=== PATIENT | female | born 1985 | race Caucasian/White ===

== ENCOUNTER → 2023-09-30 15:14 | Outpatient (REF) | payer BC, SELFPAY | LOC: HWRAD 15:14 | PROVIDERS: ATTENDING PHYSICIAN Student in an Organized Health Care Education/Training Program | DX: M54.2 Cervicalgia (principal) | CPT/HCPCS: 72052 ==

== ENCOUNTER → 2023-12-23 08:42 | Outpatient (REF) | payer OTHER, SELFPAY | LOC: HWRAD 08:42 | PROVIDERS: ATTENDING PHYSICIAN Student in an Organized Health Care Education/Training Program | DX: S23.9XXD Sprain of unspecified parts of thorax, subsequent encounter (principal) | CPT/HCPCS: 72072 ==

== ENCOUNTER → 2023-12-25 08:20 | Outpatient (REF) | payer OTHER, SELFPAY | LOC: RAD 08:20 | PROVIDERS: ATTENDING PHYSICIAN Student in an Organized Health Care Education/Training Program | DX: R10.11 Right upper quadrant pain (principal) | CPT/HCPCS: 76700 ==

== ENCOUNTER → 2023-12-27 07:25 | Outpatient (REF) | payer OTHER, SELFPAY | LOC: HWRAD 07:25 | PROVIDERS: ATTENDING PHYSICIAN Student in an Organized Health Care Education/Training Program | DX: M54.6 Pain in thoracic spine (principal); S22.068D Other fracture of T7-T8 thoracic vertebra, subsequent encounter for fracture with routine healing | CPT/HCPCS: 72128 ==

== ENCOUNTER → 2024-01-02 08:29 | Outpatient (REF) | payer OTHER, SELFPAY | LOC: HWRAD 08:29 | PROVIDERS: FAMILY PHYSICIAN Student in an Organized Health Care Education/Training Program | DX: T14.8XXA Other injury of unspecified body region, initial encounter (principal); S30.1XXD Contusion of abdominal wall, subsequent encounter; R07.82 Intercostal pain | CPT/HCPCS: 71101; 74177; Q9967 ==

== ENCOUNTER → 2024-03-20 16:23 | Outpatient (REF) | payer OTHER, SELFPAY | LOC: RAD 16:23 | PROVIDERS: ATTENDING PHYSICIAN Student in an Organized Health Care Education/Training Program | DX: S30.1XXD Contusion of abdominal wall, subsequent encounter (principal); T14.8XXA Other injury of unspecified body region, initial encounter | CPT/HCPCS: 74177; Q9967 ==

== ENCOUNTER 2024-07-19 17:15 | Emergency (ER) | payer BC, SELFPAY ==
[2024-07-19 17:20] VITALS: BP 189/114
--- NOTE | 2024-07-19 18:08 | ED.GENMED ---
History of Present Illness
General
Chief Complaint: Facial Problem
Time Seen by Provider: 07/19/24 17:45
History of Present Illness
History of Present Illness:
39-year-old female presents the emergency department for evaluation of right-sided facial pain and hyperesthesia for the past 4 to 5 days. Pain increases when anything touches the face but has a baseline level of discomfort to the right
supraorbital face at all times. Denies any rashes, vision changes, nausea, vomiting, or recent head trauma. No hearing loss or dizziness. Pain is constant and there is no episodic quality to the pain.
Past History
Past History
ED Past Medical History: HTN and Psychiatric (Anxiety)
ED Past Surgical History: Cholecystectomy, (X 2) and Gynecological (tubal, )
Social History
Tobacco: Non-smoker
Alcohol: None
Personal:
Living: with family
Review of Systems
Review of Systems
Allergies reviewed?: Yes
All Other Systems: ROS reviewed and negative except as documented in HPI and ROS
Phy Exam
Physical Exam
Physical Exam:
GEN: Well appearing, NAD, WDWN
HEENT: Oral mucosa moist, no scleral icterus, no nasal congestion. No facial rashes
Cardiac: Regular rate
Lung: No respiratory distress, no tachypnea
MSK: No gross deformity or injuries
Skin: Good color, no pallor or jaundice, no rashes
Neuro: AO x3; CN II-XII grossly intact. BUE strength 5/5 in all cam, sensation intact and symmetric. BLE strength 5/5 in all cam, sensation intact and symmetric
Psych: Calm, cooperative
Course
Vital Signs
Initial and Last Documented VS:
Initial Vital Signs
Temp Pulse Resp BP Pulse Ox
98.5 F 80 18 189/114 99
07/19/24 17:20 07/19/24 17:20 07/19/24 17:20 07/19/24 17:20 07/19/24 17:20
Last Documented Vital Signs
Temp Pulse Resp BP Pulse Ox
98.5 F 78 18 176/120 99
07/19/24 17:20 07/19/24 18:11 07/19/24 17:20 07/19/24 18:11 07/19/24 17:20
MDM/Problems Addressed
MDM/Problems Addressed:
Patient's pain location is compatible with trigeminal neuralgia however pain quality would suggest atypical disorder. She has no skin rashes to suggest zoster and no focal neurologic deficits warranting neuroimaging at this time. Given atypical
nature I have recommended she follow-up with her primary care physician to discuss an outpatient brain and/or facial MRI to evaluate for structural or neoplastic lesion causing her symptoms. Will trial her on carbamazepine
*Critical Care Note
Total Time (30-74mins, 75-104mins- exclusive of procedures): Not Applicable
ED Attending Note
-
Portions of this chart may have been created with voice recognition software.� Occasional wrong word or��sound alike� substitutions may have occurred due to the inherent limitations of voice recognition software.
Discharge Plan
Departure
Patient Disposition: Home (Routine Discharge)
Date of Disposition: 07/19/24
Time of Disposition: 18:09
Patient with high blood pressure during this ER visit?: No
Discharge Problem:
Atypical facial pain
Instructions: Trigeminal neuralgia
Prescriptions:
New
carbamazepine [Tegretol] 200 mg tablet
100 mg PO BID Qty: 30 0RF
Rx Instructions:
If no improvement, increase to 200mg PO BID after 5 days
No Action
pantoprazole [Protonix] 40 mg tablet,delayed release (DR/EC)
40 mg PO DAILY Qty: 10 0RF
Referrals:
Hailey Aquino PA-C [Family Provider, Family Practice]
Activity Restrictions/Additional Instructions:
Please discuss an outpatient MRI with your primary care physician as the atypical nature of your facial pain is more concerning for a structural or neurologic condition causing the symptoms. CT scan is typically not adequate for these findings
Interventions
Interventions:
*Risk Screen - Suicide Last Done: 07/19/24 17:20
*General Assessment Last Done: 07/19/24 18:10
*Neglect/Abuse Screening Last Done: 07/19/24 17:20
*ED- Fall Risk Assessment Last Done: 07/19/24 18:10
*ED COVID-19 Vaccine History Last Done: 07/19/24 18:10
*Nursing Disposition Last Done: 07/19/24 18:17
ED- Neurological Assessment Last Done: 07/19/24 18:11
ED-Skin Assessment Last Done: 07/19/24 18:11
Discharge Date and Time
Discharge Date/Time: 07/19/24 18:18
Print Language: CHINESE
[2024-07-19 18:10] VITALS: BMI 34.8
[2024-07-19 18:11] VITALS: BP 176/120
== END 2024-07-19 18:18 | disposition home or self-care (01) ==
LOC: EMR 17:15
PROVIDERS: EMERGENCY PHYSICIAN Emergency Medicine; FAMILY PHYSICIAN Student in an Organized Health Care Education/Training Program
DX: G50.1 Atypical facial pain (principal)
CPT/HCPCS: 99282

== ENCOUNTER 2024-09-20 16:12 | Emergency (ER) | payer BC, SELFPAY ==
[2024-09-20 16:15] VITALS: BP 146/104
[2024-09-20 16:33] LABS: Hematocrit 39.2 % (37.0-47.0); Hemoglobin 13.8 g/dL (12.0-16.0); Mean Corp Hgb Conc. 35.2 g/dL (33.0-37.0); Mean Corpuscular Volume 88.7 fL (81.0-99.0); Nucleated Red Blood Cells % 0 %; Platelet Count 273 10^3/uL (130-400); Red Cell Dist. Width 11.5 % (11.5-14.5)
[2024-09-20 16:54] LABS: HCG, Serum Qualitative Screen Negative
[2024-09-20 16:58] LABS: ALT (SGPT) 18 U/L (0-35); AST (SGOT) 18 U/L (14-36); Albumin 4.6 g/dl (3.5-5.0); Alkaline Phosphatase 44 U/L (38-126); Blood Urea Nitrogen 12 mg/dl (7-17); Calcium 9.6 mg/dl (8.4-10.2); Carbon Dioxide 24 mmol/L (22-30); Chloride 106 mmol/L (98-107); Glucose 113 mg/dl (70-99); Potassium 4.0 mmol/L (3.5-5.1); Sodium 137 mmol/L (135-145); Total Protein 7.4 g/dl (6.3-8.2); eGFR > 60.00
[2024-09-20 17:06] LABS: Troponin I < 0.012 ng/ml
[2024-09-20 18:13] VITALS: BMI 26.6
[2024-09-20 19:19] LABS: D-Dimer 0.50 ug/mlFEU (0.00-0.50)
[2024-09-20 19:25] VITALS: BP 129/82
[2024-09-20 20:00] VITALS: BP 129/71
[2024-09-20 22:04] VITALS: BP 139/96
--- NOTE | 2024-09-20 22:34 | ED.GENMED ---
History of Present Illness
General
Chief Complaint: Breathing Problem
Source: patient
Exam Limitations: none
Time Seen by Provider: 09/20/24 18:00
Nursing documentation reviewed up to this point in time: agreed with
History of Present Illness
History of Present Illness:
Patient to ED with complaint of chest tightness, difficulty breathing. Symptoms started 2 days ago. Denies fever/chills, recent illness. No n/v/diaphoresis. No chest pain. Denies cough. TO ED accompanied by family for eval.
Past History
Past History
ED Past Medical History: HTN and Psychiatric (Anxiety)
ED Past Surgical History: Cholecystectomy, (X 2) and Gynecological (tubal, )
Social History
Tobacco: Non-smoker
Alcohol: None
Personal:
Living: with family
Review of Systems
Review of Systems
Allergies reviewed?: Yes
All Other Systems: ROS reviewed and negative except as documented in HPI and ROS
Constitutional: Reports no symptoms
EENT: Reports no symptoms
Respiratory: Reports trouble breathing
Cardiac: Reports no symptoms
ABD/GI: Reports no symptoms
: Reports no symptoms
Musculoskeletal: Reports no symptoms
Skin: Reports no symptoms
Neurological: Reports no symptoms
Psychiatric: Reports no symptoms
Phy Exam
General Physical Exam
General Presentation: mild distress
General age: appears stated age
General Skin: warm and dry
General Habitus: normal
General Mental: alert
General Hydration: appears well hydrated
Cardiovascular Exam
Cardiovascular Exam: regular rate/rhythm and no edema
Pulmonary Exam
Pulmonary Exam: lungs clear, no respiratory distress, no rales, chest non tender, no crackles, no rhonchi, no stridor, no wheezing, no cough and other (Pulse ox 98% RA)
Musculoskeletal Exam
Musculoskeletal Exam: full ROM and neuro vasc intact
Skin Exam
Skin Exam: normal color, warm/dry and no rash
Psychiatric Exam
Psychiatric Exam: normal mood/affect
Course
Orders/Labs/Results
Orders:
Orders
09/20/24 16:15
Electrocardiogram (*1) Urgent
Reason for Study: Shortness of Breath
EKG- Treatment ONCE
Test Result ONCE
09/20/24 16:27
Complete Blood Count/With Diff Urgent
Comprehensive Metabolic Panel Urgent
HCG, Serum Qualitative Screen Urgent
Troponin I Urgent
09/20/24 18:14
CR Chest - 2 Views Urgent
Comment:
Reason For Exam: SOB
09/20/24 18:21
D-Dimer Urgent
09/20/24 19:37
CT Chest PE Study Urgent
Comment:
Reason For Exam: Chest pain, dyspnea
Abnormal Lab Results
09/20/24
16:27
MCH 31.2 H pg
(27.0-31.0)
MPV 10.5 H fL
(7.4-10.4)
Absolute Lymphs (auto) 4.3 H 10^3/uL
(1.2-3.4)
Glucose 113 H mg/dl
(70-99)
09/20/24 16:27
09/20/24 16:27
Vital Signs
Initial and Last Documented VS:
Initial Vital Signs
Temp Pulse Resp BP Pulse Ox
99.3 F 103 16 146/104 100
09/20/24 16:15 09/20/24 16:15 09/20/24 16:15 09/20/24 16:15 09/20/24 16:15
Last Documented Vital Signs
Temp Pulse Resp BP Pulse Ox
99.3 F 75 18 139/96 100
09/20/24 16:15 09/20/24 22:00 09/20/24 20:00 09/20/24 22:04 09/20/24 22:05
*Radiology
Radiology exam reviewed: radiology read reviewed
*Pulse Oximetry
SaO2: 100
Oxygen Mode of Delivery: Room air
Patient hypoxic: no
*Critical Care Note
Total Time (30-74mins, 75-104mins- exclusive of procedures): Not Applicable
Update Note
Update Note:
Patient to ED with complaint of chest tightness, difficulty breathing x 2 days. VSS, she remains afebrile. LCTA, no concerning findings on CXR, CT. Labs are stable. PUlse ox remains 98% RA, respirations 22. EKG NSR, troponin neg, Will discharge
home, she will follow up with her PCP in AM. Given instructions on s/s to return to ED and she is agreeable to plan.
ED Attending Note
-
Portions of this chart may have been created with voice recognition software.� Occasional wrong word or��sound alike� substitutions may have occurred due to the inherent limitations of voice recognition software.
Discharge Plan
Departure
Patient Disposition: Home (Routine Discharge)
Date of Disposition: 09/20/24
Time of Disposition: 22:09
Patient with high blood pressure during this ER visit?: No
Condition: Good
Covid-19: Not Applicable
Discharge Problem:
Dyspnea
Instructions: Shortness of Breath (Dyspnea) (DC)
Prescriptions:
No Action
pantoprazole [Protonix] 40 mg tablet,delayed release (DR/EC)
40 mg PO DAILY Qty: 10 0RF
carbamazepine [Tegretol] 200 mg tablet
100 mg PO BID Qty: 30 0RF
Rx Instructions:
If no improvement, increase to 200mg PO BID after 5 days
Referrals:
Hailey Aquino PA-C [Family Provider, Family Practice] - Call in 1-3 days for appt
Interventions
Interventions:
*Risk Screen - Suicide Last Done: 09/20/24 16:17
*General Assessment Last Done: 09/20/24 18:14
*Neglect/Abuse Screening Last Done: 09/20/24 16:17
*ED- Fall Risk Assessment Last Done: 09/20/24 18:14
*ED COVID-19 Vaccine History Last Done: 09/20/24 18:14
*Nursing Disposition Last Done: 09/20/24 22:20
ED- Cardiac Assessment Last Done: 09/20/24 22:14
ED- Pulmonary Assessment Last Done: 09/20/24 22:14
Discharge Date and Time
Discharge Date/Time: 09/20/24 22:22
Print Language: NEPALI
== END 2024-09-20 22:22 | disposition home or self-care (01) ==
LOC: EMR 16:12
PROVIDERS: Nurse Practitioner; Student in an Organized Health Care Education/Training Program; EMERGENCY PHYSICIAN Emergency Medicine; FAMILY PHYSICIAN Student in an Organized Health Care Education/Training Program
DX: R06.00 Dyspnea, unspecified (principal); I10 Essential (primary) hypertension; F41.9 Anxiety disorder, unspecified
CPT/HCPCS: 99284; 71046; 71275; 80053; 84484; 84703; 85025; 85379; 93005; Q9967

== ENCOUNTER → 2024-09-25 06:49 | Outpatient (REF) | payer OTHER, SELFPAY | LOC: RAD 06:49 | PROVIDERS: ATTENDING PHYSICIAN Surgery; FAMILY PHYSICIAN Student in an Organized Health Care Education/Training Program | DX: S30.1XXA Contusion of abdominal wall, initial encounter (principal) | CPT/HCPCS: 74177; Q9967 ==

== ENCOUNTER 2024-12-17 05:51 | Day surgery (SDC) | payer BC, SELFPAY ==
[2024-12-17 06:27] VITALS: BMI 34.8
[2024-12-17 06:29] VITALS: BMI 34.8
[2024-12-17] MEDS: TYLENOL 1000 MG PO (06:31)
[2024-12-17 06:40] VITALS: BP 111/83
[2024-12-17] MEDS: NORMOSOL-R/PLASMALYTE-A 1000 IV (06:42)
--- NOTE | 2024-12-17 06:52 | W.SUR.PREOP ---
Pre-Operative Surgical Note
-
I have examined this patient prior to the performance of the scheduled procedure.
The patient's condition is unchanged from the time of the current History and
Physical and the patient is able to undergo the scheduled procedure.
--- NOTE | 2024-12-17 06:52 | HP.FOC2 ---
Focused History & Physical
Chief Complaint
HPI:
Chief Complaint: Left lower quadrant abdominal wall mass
HPI / Indication for Planned Procedure: This is a 39-year-old female who presents with a left lower quadrant abdominal wall mass. Will plan for an open excision in the OR.
Relevant Past Medical History: Negative
Relevant Social History: Negative
Relevant Family History: Negative
Relevant Past Surgical History: Negative
Review of Systems
Review of Pertinent Systems: All Systems Negative
Medication
See Medication form for detailed medications: Yes
Medication List (including Herbals & OTC):
lisinopril 10 mg tablet 10 mg PO DAILY 12/11/24
sertraline 50 mg tablet 50 mg PO DAILY 12/11/24
tirzepatide (weight loss) 5 mg/0.5 mL subcutaneous pen injector (Zepbound) 5 mg SC QWEEK 12/11/24
Medications Reviewed: Yes
Allergies and Reactions
Patient has Allergies: Yes
Noted Allergies and Reactions:
Allergy/AdvReac Type Severity Reaction Status Date / Time
amoxicillin Allergy Hives Verified 12/17/24 06:28
doxycycline Allergy GI S/S Verified 12/17/24 06:28
Pertinent Physical Exam
All Other Systems: Negative
Head/Neck: Normal
Diagnosis / Assessment
This is a 39-year-old female who presents with a left lower quadrant abdominal wall mass. Will plan for an open excision in the OR.
Plan / Procedure
This is a 39-year-old female who presents with a left lower quadrant abdominal wall mass. Will plan for an open excision in the OR.
Anesthesia/Sedation to be done by Anesthesia Provider: Yes
--- NOTE | 2024-12-17 08:03 | W.IMMPOSTOP ---
Surgical Immed Post Op Note
-
Primary Surgeon: Joe Hawkins MD
Assisting Surgeon: None
Pre-op Diagnosis: Left lower quadrant abdominal wall mass
Post-op Diagnosis: Same
Procedure Performed: Excision of a left lower quadrant abdominal wall mass
Anesthesia Type: General
Specimen / Cultures: 5 x 4 x 4 cm cystic structure in the left lower quadrant.
Estimated Blood Loss: 3 cc
Complications: None
Operative Findings: Firm cystic structure tethered to the surrounding connective tissue, excised completely with additional surrounding scar tissue removed. 5 x 4 x 4 cm.
--- NOTE | 2024-12-17 08:06 | OR.RPT ---
Operative Report
Operative Report
Patient Name: Breanna Byrne
: 1985
Date of Operation: 12/17/2024
Preoperative Diagnosis: Left lower quadrant abdominal wall mass
Postoperative Diagnosis: Same
Procedure(s):
Excision of a left lower quadrant abdominal wall mass
Surgeon(s):
Dr. Hawkins
Saw Filer(s):
SHAKIRA Park
Anesthesia: MAC
Estimated Blood Loss: 3 cc
Urine Output: None
Drains/Lines/Implants: None
Specimens:
1. Left lower quadrant abdominal wall mass
Indication for surgery:
This is a 39-year-old female who presents with a left lower quadrant abdominal wall mass which she has had since traumatic fall several years ago. It is tender to palpation but has not changed in size for several years. CT imaging confirms no
underlying hernia and a 3.5 cm complex ovoid mass. After evaluation in the office they were diagnosed with a left lower quadrant abdominal wall subcutaneous mass. After discussion of risk benefits and alternatives they elected and were consented
for surgery.
Operative Findings: Firm cystic structure tethered to the surrounding connective tissue, excised completely with additional surrounding scar tissue removed. 5 x 4 x 4 cm.
Details of the operation:
The patient was brought to the operating room a placed in the supine position. After appropriate sedation by anesthesia, the area of the left lower quadrant was prepped and draped in the usual fashion. A linear incision over natural skin line was
made over the mass and carried down through the subcutaneous tissue. The mass/cystic structure was identified and found to be encapsulated. It was freed circumferentially and removed. It measured roughly 5 x 4 x 4 cm. Additional surrounding scar
tissue was removed until healthy tissue was identified. There was 1 small bleeding vessel which was ligated with a 3-0 Vicryl suture. Quarter percent Marcaine was used generously throughout the case. The cavity was irrigated and hemostasis was
achieved. The space was closed with interrupted 3-0 Vicryl sutures. The dermis was then approximated using interrupted 3-0 Vicryl sutures followed by a running 4-0 monocryl, followed by dermabond. All counts were correct at the end of procedure.
The patient was then transferred to the PACU for recovery.
I was the attending physician and performed the procedure with assistance from the MAIL LIST PROCESSOR above. I was present for all portions of the case, excluding skin closure.
Joe Hawkins MD
[2024-12-17 08:13] VITALS: BP 105/76
[2024-12-17 08:15] VITALS: BP 98/74
[2024-12-17 08:34] VITALS: BP 108/72
[2024-12-17 08:45] VITALS: BP 101/63
== END 2024-12-17 09:00 | disposition home or self-care (01) ==
LOC: SDS 05:51
PROVIDERS: ATTENDING PHYSICIAN Surgery
DX: M79.89 Other specified soft tissue disorders (principal)
CPT/HCPCS: 22903; 88304